=== PATIENT | male | born 1950 | race African-American/Black ===

== ENCOUNTER 2022-07-18 04:08 | Day surgery (SDC) | payer BC, OTHER ==
[2022-07-14 11:26] VITALS: BMI 31.8
[2022-07-18] MEDS ORDERED: LIDOCAINE HCL 1% EPINEPHRINE 1:200,000 30 ML VIAL (PF) ONE (07:08)
[2022-07-18] MEDS ORDERED: BUPIVACAINE HCL/PF 0.5% (5MG/ML) 10 ML VIAL ONE (07:08)
[2022-07-18] MEDS ORDERED: MIDAZOLAM HCL 2 MG/2 ML SINGLE DOSE VIAL ONE ×2 (07:11→08:11)
[2022-07-18] MEDS ORDERED: PROPOFOL 20 ML ONE (07:11)
[2022-07-18] MEDS ORDERED: KETOROLAC TROMETHAMINE 30 MG/1 ML VIAL ONE (07:14)
[2022-07-18] MEDS ORDERED: ONDANSETRON 4 MG/2 ML VIAL ONE (07:14)
[2022-07-18] MEDS ORDERED: DEXAMETHASONE SOD PHOSPHATE 4 MG/1 ML VIAL ONE (07:14)
[2022-07-18] MEDS ORDERED: ACETAMINOPHEN INJECTION 100 ML IVPB ONE (07:16)
[2022-07-18] MEDS ORDERED: ceFAZolin SODIUM 1 GM VIAL IVPB ONE (08:20)
[2022-07-18] MEDS ORDERED: BUPIVACAINE HCL/PF 0.5% (5MG/ML) 10 ML VIAL IJ ONE ×2 (08:36→08:48)
[2022-07-18] MEDS ORDERED: oxyCODONE HCL 5 MG TABLET PO PRN (09:15)
[2022-07-18] MEDS ORDERED: LACTATED RINGERS SOLUTION 1,000 ML IV SCH (09:15)
[2022-07-18] MEDS ORDERED: oxyCODONE HCL 5 MG TABLET ONE (11:00)
[2022-07-18 11:22] VITALS: RESP 20; TEMP 96.4
[2022-07-18 12:23] VITALS: BP 125/75; PULSE 75
== END 2022-07-18 12:26 | disposition home or self-care (01) ==
LOC: JASU-SURG 04:08
PROVIDERS: ATTEND Orthopaedic Surgery
PROC: 0SBC4ZZ Excision of Right Knee Joint, Percutaneous Endoscopic Approach (ICD-10-PCS; principal; 2022-07-18 08:00)
DX: S83.241A Other tear of medial meniscus, current injury, right knee, initial encounter (principal); M17.11 Unilateral primary osteoarthritis, right knee; X58.XXXA Exposure to other specified factors, initial encounter; Y93.9 Activity, unspecified; Y92.9 Unspecified place or not applicable; Y99.9 Unspecified external cause status
CPT/HCPCS: 82962; 94760; C9803-CS; U0003; U0005